=== PATIENT | female | born 1990 | race Caucasian/White ===

== ENCOUNTER 2018-11-19 17:51 | Emergency (ER) | payer SELFPAY ==
[~2018-11-19] VITALS: Ht 154.9 cm; Wt 85.9 kg
[2018-11-19 18:01] VITALS: Ht 154.9 cm; Wt 85.9 kg
[2018-11-19 19:21] VITALS: BP 114/66
== END 2018-11-19 19:21 | disposition home or self-care (01) ==
LOC: ED 17:51
DX: O26.892 Other specified pregnancy related conditions, second trimester (principal); K08.89 Other specified disorders of teeth and supporting structures